=== PATIENT | female | born 1955 | race Caucasian/White ===

== ENCOUNTER 2016-12-10 10:59 | Emergency (ER) | payer OTHER ==
--- NOTE | ~2016-12-10 | CR181 ---
[facility] A Service of [facility] RADIOLOGY TEXT RESULTS PATIENT: KRISHAN DAMON LOCATION: [place] : 59 UNIT #: [id number] AGE: [address]: Jim Pereira MD SEX: F ORDER DR: [id number] [facility] [address] [place], [place] [address] [id number] E MR#: [id number] Acc #: [id number] NAME: KRISHAN DAMON : 1955 SEX: F STUDY DATE/TIME: 12/10/2016 UNIT: [facility] ROOM: STUDY DESCRIPTION: CR Lumbar Spine 2 or 3 Views Attending Physician: Jim Pereira M.D. Ordering Physician: Ed Jose Antonio Fortune M.D. Primary Care Physician: Maria Elena Castillo A.P.R.N. MEDICAL IMAGING REPORT This report is preliminary unless electronic signature is present EXAM Lumbar spine series, 12/10/2016, 1219 hours. HISTORY 61-year-old woman who suffered a seizure today, resulting in a fall. Low back pain since fall. COMPARISON 12/01/2014 FINDINGS AP and lateral views demonstrate multilevel disc height loss in the lower lumbar spine with facet arthropathy, similar to 12/01/2014. This results in a few millimeters of anterolisthesis of L4 on L5, which is stable. No compression deformity seen. IMPRESSION Stable lower lumbar disc height loss and facet arthropathy, resulting grade I anterolisthesis of L4 on L5. There is no compression fracture or appreciable change from 12/01/2014. Dictated by... Alpa Gupta M.D. THIS IS AN ELECTRONICALLY VERIFIED REPORT Alpa Gupta M.D. at 12/10/2016 2:31 PM CHANTE/nita TD: 12/10/2016 13:40 JOB #: [id number] [facility] A Service [facility] RADIOLOGY TEXT RESULTS PATIENT: KRISHAN DAMON LOCATION: [facility] : 59 UNIT #: [id number] AGE: [address]: Jim Pereira MD SEX: F ORDER DR: MEDICAL IMAGING REPORT Page 1 of 1 COPY
--- NOTE | ~2016-12-10 | CR243 ---
[facility] A Service [facility] RADIOLOGY TEXT RESULTS PATIENT: KRISHAN DAMON LOCATION: [place] : 59 UNIT #: [id number] AGE: [address]: Jim Pereira MD SEX: F ORDER DR: [id number] [id number] [facility]. [place], [place] [address] [id number] E MR#: [id number] Acc #: [id number] NAME: KRISHAN DAMON : 1955 SEX: F STUDY DATE/TIME: 12/10/2016 UNIT: [facility] ROOM: STUDY DESCRIPTION: CR Thoracic Spine 3 Views Attending Physician: Jim Pereira M.D. Ordering Physician: Ronen Fortune M.D. Primary Care Physician: Maria Elena Castillo A.P.R.N. MEDICAL IMAGING REPORT This report is preliminary unless electronic signature is present EXAM Thoracic spine series, 12/10/2016, 1217 hours. HISTORY 61-year-old woman who suffered a seizure today, resulting in a fall with back pain since fall. COMPARISON Thoracic spine film, 12/01/2014. FINDINGS AP and lateral views of the thoracic spine with attempted swimmer's view. Swimmer's view is rotated. There is multilevel endplate spurring without compression fracture. The posteromedial ribs are intact. IMPRESSION Multilevel endplate spurring with no compression fracture or significant change from 12/01/2014. Dictated by... Alpa Gupta M.D. THIS IS AN ELECTRONICALLY VERIFIED REPORT Alpa Gupta M.D. at 12/10/2016 2:31 PM CHANTE/nita TD: 12/10/2016 13:37 JOB #: [id number] [facility] A Service [facility] RADIOLOGY TEXT RESULTS PATIENT: KRISHAN DAMON LOCATION: [place] : 59 UNIT #: [id number] AGE: [address]: Jim Pereira MD SEX: F ORDER DR: MEDICAL IMAGING REPORT Page 1 of 1 COPY
--- NOTE | ~2016-12-10 | EKG ---
PATIENT: KRISHAN DAMON UNIT #: [id number] Ventricular Rate: 70 BPM Atrial Rate: 70 BPM P-R Interval: 218 ms QRS Duration: 112 ms Q-T Interval: 418 ms QTC Calculation(Bezet): 451 ms P [place]: 58 degrees Calculated R [place]: -11 degrees Calculated T [place]: 75 degrees Diagnosis Line: Sinus rhythm with 1st degree A-V block Diagnosis Line: Low voltage QRS Diagnosis Line: Borderline ECG Diagnosis Line: No previous ECGs available Diagnosis Line: Confirmed by TISHA RAPHAEL MD ([id number]) on 12/10/2016 Diagnosis Line: 11:35:40 PM INTERPRETING MD: IJEOMA WAYNE
[~2016-12-10 10:59] MED LIST: ACETAMINOPHEN PO; ANTIVERT PO; ASPIRIN81 M1 PO; ATIVAN PO; BENAZEPRIL PO; BLOOD PRESSURE; CLONIDINE HCL0.1 MG PO; DILANTIN; DILANTIN PO; FLEXERIL PO; HCTZ PO; HYDROCHLOROTHIA25 MG PO; IBUPROFEN PO; KEPPRA500 MG PO; KEPPRA750 MG PO; LAMICTAL PO; LAMICTAL150 MG PO; LOTENSIN40 MG PO; NORVASC10 MG PO; ONFI10 MG PO; PRAVASTATIN SOD80 MG PO; PRILOSEC40 MG PO; VICODIN 5/500 T1 TAB PO; VIMPAT100 MG PO; VOLTAREN50 MG PO; ZOCOR PO; ZOLOFT50 MG PO; ZYRTEC PO
[2016-12-10 11:10] LABS: BASOPHIL# 0.1 X10e3 (0-0.3); BASOPHIL% 0.8 % (0-2.5); EOSINOPHIL# 0.4 X10e3 (0-0.7); EOSINOPHIL% 5.8 % (0.0-7.0); HEMATOCRIT 38.4 % (35.0-45.0); HEMOGLOBIN 12.5 gm/dL (12.0-16.0); LYMPHOCYTE# 1.7 X10e3 (1.0-3.5); LYMPHOCYTE% 21.7 % (17.0-45.0); MEAN CELL VOLUME 90.3 FL (83-96); MEAN CORPUSCULAR HEMOGLOBIN 29.5 PG (28-34); MEAN CORPUSCULAR HGB CONC 32.6 g/dL (30-36); MEAN PLATELET VOLUME 6.4 FL (6.5-11.5); MONOCYTE# 0.4 X10e3 (0-1.0); MONOCYTE% 5.6 % (3.0-12.0); NEUTROPHIL% 66.1 % (40-75); PLATELET COUNT 326 X10e3 (140-420); RED BLOOD COUNT 4.25 X10e (3.90-5.30); RED CELL DISTRIBUTION WIDTH 14.1 % (11.0-15.5); WHITE BLOOD COUNT 7.6 X10e3 (4.0-10.5)
[2016-12-10 11:13] LABS: DIFF IND NO
[2016-12-10 11:40] LABS: ALBUMIN SERUM 4.3 g/dL (3.5-5.0); ALKALINE PHOSPHATASE 135 U/L (32-92); ALT (SGPT) 15 U/L (10-40); AST (SGOT) 15 U/L (10-42); BILIRUBIN, DIRECT <0.1 mg/dL (0.0-0.2); BILIRUBIN,INDIRECT 0.4 mg/dL (0.0-0.9); BILIRUBIN,TOTAL 0.5 mg/dL (0.2-2.0); BLOOD UREA NITROGEN 18 mg/dL (9-23); CALCIUM SERUM 9.3 mg/dL (8.4-10.2); CARBON DIOXIDE 27 mmol/L (22-31); CHLORIDE 107 mmol/L (100-111); CREATININE SERUM 0.9 mg/dL (0.6-1.4); DILANTIN (PHENYTOIN) <2.5 ug/mL (10.0-20.0); GLUCOSE FASTING 90 mg/dL (70-110); PROTEIN TOTAL SERUM 7.1 g/dL (6.0-8.3); SODIUM 143 mmol/L (135-145)
[2016-12-10 13:19] LABS: URINE SOURCE CLEAN CATCH
[2016-12-10 13:24] LABS: URINE APPEARANCE CLEAR; URINE BILIRUBIN NEG (NEG); URINE BLOOD NEG (NEG); URINE COLOR YELLOW; URINE GLUCOSE NEG (NEG); URINE KETONE NEG (NEG); URINE LEUKOCYTE ESTERASE TRACE (NEG); URINE NITRATE NEG (NEG); URINE PROTEIN NEG (NEG); URINE UROBILINOGEN 0.2 MG/DL (NEG)
[2016-12-10 13:28] LABS: CULTURE INDICATED? NO; URBCS1 AUWI 0-2 /[HPF] (0-2); URINE BACTERIA AUWI NEG (NEGATIVE); URINE SQUAMOUS EPITHELIAL CELL FEW /[HPF]; UWBCS1 AUWI 0-2 (0-5)
[2016-12-10 13:28] LABS: POC - CKMB <1.0 ng/mL (0.0-7.9); POC - TROPONIN <0.05 ng/mL (<=0.05)
[2016-12-10 13:31] LABS: POC - CKMB <1.0 ng/mL (0.0-7.9); POC - TROPONIN <0.05 ng/mL (<=0.05)
[2016-12-10 13:36] LABS: AMPHETAMINE NEG (NEG); BARBITURATES NEG (NEG); BENZODIAZEPINES POS (NEG); COCAINE NEG (NEG); MARIJUANA NEG (NEG); OPIATES NEG (NEG); TRICYCLIC ANTIDEPRESSANTS NEG (NEG); U METHADONE NEG (NEG)
== END 2016-12-10 19:39 | disposition home or self-care (01) ==
LOC: CFTX 10:59
PROVIDERS: Emergency Medicine
DX: G40.909 Epilepsy, unspecified, not intractable, without status epilepticus (principal); I10 Essential (primary) hypertension; E78.5 Hyperlipidemia, unspecified; F41.9 Anxiety disorder, unspecified; Z79.899 Other long term (current) drug therapy; Z90.710 Acquired absence of both cervix and uterus; Z98.890 Other specified postprocedural states
CPT/HCPCS: 36415; 51701; 72072; 72100; 80048; 80076; 80185; 80307; 81003; 82553; 82947; 84484; 85025; 93005; 96374; 96375; 99284; J1953; Q2009